=== PATIENT | male | born 1990 | race Hispanic/Latino ===

== ENCOUNTER 2024-07-08 21:33 | Emergency (ER) | payer SELFPAY ==
[2024-07-08 22:42] LABS: #Basophils 0.06 10x3/uL (0.0-0.2); %Basophils 0.4 % (0.0-1.0); %Eosinophils 1.7 % (0.0-10.0); %Lymphocytes 16.9 % (21.0-51.0); %Monocytes 5.5 % (0.0-10.0); %Neutrophils 75.3 % (42.0-75.0); Hematocrit 45.4 % (42.0-52.0); Hemoglobin 15.5 g/dL (14.0-18.0); Mean Corpuscular HGB CONC 34.1 g/dL (32.0-36.0); Mean Corpuscular Hemoglobin 29.9 pg (27.0-31.0); Mean Corpuscular Volume 87.6 fL (78.0-98.0); Mean Platelet Volume 10.3 fL (7.4-10.4); Platelet Count 269 10x3/uL (130-400); RBC Distribution Width 13.1 % (11.5-14.5); Red Blood Cell (RBC) Count 5.18 mill/uL (4.70-6.10)
[2024-07-08 23:03] LABS: ALT (SGPT) 36 U/L (8-55); AST (SGOT) 22 U/L (5-34); Albumin 4.5 g/dL (3.5-5.0); Alkaline Phosphatase 88 U/L (40-110); Anion Gap 15 mmol/L (10-20); BUN (Urea Nitrogen) 16 mg/dL (8.9-20.6); Bilirubin, Total 0.4 mg/dL (0.2-1.2); Calc. Creatinine Clearance 0 mL/min (70-130); Carbon Dioxide 26 mmol/L (22-29); Chloride 102 mmol/L (98-107); Estimated GFR 121; Globulin 4.6 g/dL (2.4-3.5); Glucose 129 mg/dL (70-105); Potassium 4.4 mmol/L (3.5-5.1); Protein, Total 9.1 g/dL (6.0-8.3); Sodium 139 mmol/L (136-145)
== END 2024-07-09 00:31 | disposition home or self-care (01) ==
LOC: ERS 21:33
DX: R42 Dizziness and giddiness (principal); R03.0 Elevated blood-pressure reading, without diagnosis of hypertension; R29.700 NIHSS score 0
CPT/HCPCS: 36415; 80053; 85025; 93005; 99284